=== PATIENT | female | born 1955 | race Caucasian/White ===

== ENCOUNTER → 2017-11-27 | Outpatient (CLI) | payer BC ==
[2014-02-04 14:10] VITALS: BP 154/69
[~2017-11-27] MED LIST: BLOOD PRESSURE MED; BUPIVACAINE MPF 0.5% 30 ML VIAL. ONE; DEXAMETHASONE SOD PHOS 4 MG/ML VIAL ONE; DM/P295L2 PO; GABA-586 PO; LIDOCAINE 1% PF 30 ML VIAL. ONE; MILN50TA PO; NAPR-683 PO
== END | disposition home or self-care (01) ==
LOC: SURG 12:11
PROVIDERS: ATTEND Anesthesiology Pain Medicine
DX: M47.816 Spondylosis without myelopathy or radiculopathy, lumbar region (principal)
CPT/HCPCS: 64493; 64494; J1100; J2001; J3490

== ENCOUNTER → 2018-01-29 | Outpatient (CLI) | payer BC ==
[2014-02-04 14:10] VITALS: BP 154/69
[~2018-01-29] MED LIST changes: +BUPIVACAINE MPF 0.25% 30 ML VIAL. ONE; -BUPIVACAINE MPF 0.5% 30 ML VIAL. ONE; +IOHEXOL 300 MG/ML 50 ML VIAL. ONE
== END | disposition home or self-care (01) ==
LOC: SURG 12:12
PROVIDERS: ATTEND Anesthesiology Pain Medicine
DX: M51.16 Intervertebral disc disorders with radiculopathy, lumbar region (principal); I10 Essential (primary) hypertension; M19.90 Unspecified osteoarthritis, unspecified site; M79.7 Fibromyalgia; Z90.49 Acquired absence of other specified parts of digestive tract; Z90.710 Acquired absence of both cervix and uterus; Z79.899 Other long term (current) drug therapy
CPT/HCPCS: 64483; 64484; J1100; J2001; J3490; Q9967; 77002

== ENCOUNTER 2018-04-13 07:40 | Emergency (ER) | payer BC ==
[~2018-04-13] VITALS: Ht 167.6 cm; Wt 97.5 kg
[~2018-04-13 07:40] MED LIST changes: -BUPIVACAINE MPF 0.25% 30 ML VIAL. ONE; -DEXAMETHASONE SOD PHOS 4 MG/ML VIAL ONE; -IOHEXOL 300 MG/ML 50 ML VIAL. ONE; -LIDOCAINE 1% PF 30 ML VIAL. ONE
--- NOTE | 2018-04-13 09:18 | PHYS DOC ---
Past History Past Medical History: Fibromyalgia, Hypertension Past Surgical History: Cholecystectomy, Hysterectomy, Tonsillectomy, Other Alcohol Use: Occasionally Drug Use: None Adult General Chief Complaint Chief Complaint: CONSTIPATION HPI HPI Patient is a 62 year old female who presents with complaining of constipation. Patient states she usually has bowel movements every other day but did not have any bowel movement for the last 4 days. Patient states she had back surgery and taking hydrocodone for the last 1 week and took MiraLAX yesterday without having a bowel movement. Patient complaining of pressure feeling in her abdomen and rectum without nausea and vomiting, fever and chills, urinary symptom. Review of Systems Review of Systems Constitutional: Denies fever or chills [] Eyes: Denies change in visual acuity, redness, or eye pain [] HENT: Denies nasal congestion or sore throat [] Respiratory: Denies cough or shortness of breath [] Cardiovascular: No additional information not addressed in HPI [] GI: Reports abdominal pain and constipation, denies nausea, vomiting, bloody stools or diarrhea [] : Denies dysuria or hematuria [] Musculoskeletal: Denies back pain or joint pain [] Integument: Denies rash or skin lesions [] Neurologic: Denies headache, focal weakness or sensory changes [] Endocrine: Denies polyuria or polydipsia [] All other systems were reviewed and found to be within normal limits, except as documented in this note. Allergies Allergies Allergies Coded Allergies Type Severity Reaction Last Updated Verified No Known Drug Allergies 02/04/14 No Physical Exam Physical Exam Constitutional: Well developed, well nourished, mild acute distress, non-toxic appearance. [] HENT: Normocephalic, atraumatic. Eyes: PERRLA, EOMI, conjunctiva normal, no discharge. [] Neck: Normal range of motion, no tenderness, supple, no stridor. [] Cardiovascular:Heart rate regular rhythm, no murmur [] Lungs & Thorax: Bilateral breath sounds clear to auscultation [] Abdomen: Bowel sounds normal, soft, no tenderness, no masses, no pulsatile masses. [Rectal exam with present of esthetics instructor showed fecal impaction that was manipulated and removed partially.] Skin: Warm, dry, no erythema, no rash. [] Back: No tenderness, no CVA tenderness. [] Extremities: No tenderness, no cyanosis, no clubbing, ROM intact, no edema. [] Neurologic: Alert and oriented X 3, normal motor function, normal sensory function, no focal deficits noted. [] Psychologic: Affect normal, judgement normal, mood normal. [] EKG EKG [] Radiology/Procedures Radiology/Procedures [] Course & Med Decision Making Course & Med Decision Making Evaluation of patient in ER showed 62-year-old male patient with complaining of constipation after taking hydrocodone for the last one week for back surgery. Patient had fecal impaction and was not able to have bowel movements after removing part of the stool. Patient had milk of molasses enema and was able to have a good bowel movement in ER. Prescription for milk of magnesia on [facility] was given for using as needed. Dragon Disclaimer Dragon Disclaimer This electronic medical record was generated, in whole or in part, using a voice recognition dictation system. Departure Departure: Impression: Primary Impression: Constipation due to opioid therapy Disposition: HOME, SELF-CARE (@1030) Condition: IMPROVED Referrals: MELISA MORENO MD (PCP) Patient Instructions: Constipation, Adult Additional Instructions: Drink plenty of liquids Follow-up with your primary care physician in 3-5 days Return to ER if not getting better Scripts Magnesium Citrate (MAGNESIUM CITRATE) 296 Ml Solution 148 ML PO ONCE PRN for constipation, #296 ML Prov: NORMA LING MD 04/13/18 Peg 3350/Na Sulf,Bicarb,Cl/Kcl (GOLYTELY SOLUTION) 4,000 Ml Soln.recon 250 ML PO Q1HR for constipation, #1 MISC Prov: NORMA LING MD 04/13/18 NORMA LING MD Apr 13, 2018 09:18
[2018-04-13 10:10] VITALS: BP 142/80
[2018-04-13] MEDS ORDERED: PEG4000S8 PO (10:28)
[2018-04-13] MEDS ORDERED: MAGN296S9 PO (10:28)
== END 2018-04-13 10:40 | disposition home or self-care (01) ==
LOC: ER 07:40
DX: K59.03 Drug induced constipation (principal); T40.2X5A Adverse effect of other opioids, initial encounter; M79.7 Fibromyalgia; I10 Essential (primary) hypertension; Z90.49 Acquired absence of other specified parts of digestive tract; Z90.710 Acquired absence of both cervix and uterus; Y92.89 Other specified places as the place of occurrence of the external cause
CPT/HCPCS: 99284

== ENCOUNTER 2020-01-22 08:16 | Emergency (ER) | payer MEDICARE, BC ==
[~2020-01-22] VITALS: Ht 165.1 cm; Wt 97.7 kg
[~2020-01-22 08:16] MED LIST changes: +MAGN296S68 PO; +PEG4000S8 PO
[2020-01-22] MEDS ORDERED: ONDANSETRON PF 4 MG/2 ML VIAL. ONE (08:37)
[2020-01-22] MEDS ORDERED: IV NORMAL SALINE 1,000ML 1,000 ML IV ONE (08:45)
[2020-01-22] MEDS ORDERED: ONDANSETRON PF 4 MG/2 ML VIAL. IVP ONE (08:45)
--- NOTE | 2020-01-22 08:55 | PHYS DOC ---
Past History Past Medical History: Fibromyalgia, High Cholesterol, Hypertension Past Surgical History: Cholecystectomy, Hysterectomy, Tonsillectomy, Other Alcohol Use: Occasionally Drug Use: None Adult General Chief Complaint Chief Complaint: NAUSEA/VOMITING/DIARRHEA HPI HPI Patient is a 64-year-old female complaining of nausea. Patient reports symptom onset was this morning without any prodromal symptoms or other noticeable symptoms that were acknowledged prior to waking up this morning. Patient reports generalized stomach upset with nausea and acute on chronic constipation. In addition, patient also cites development of substernal chest pressure that does not radiate, is not severe but is bothering her and not typical for her. She states she tried taking Pepto-Bismol and other uefn-yav-xmblmdv remedies without significant relief which concerned her prompting her to visit our ER for evaluation. Timing of symptoms has been constant since onset. Patient reports she has past medical history of hypertension, high blood pressure and fibromyalgia and has been taking all medications daily. 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 Review of Systems Review of Systems Fourteen body systems of review of systems have been reviewed. See HPI for pertinent positives and negative responses, other pina all other systems are negative, non-pertinent or non-contributory Current Medications Current Medications Current Medications Medications (Trade) Dose Ordered Sig/Juan Miguel Start Time Stop Time Status Last Admin Dose Admin Ondansetron HCl (Zofran) 4 mg 1X ONCE 01/22/20 08:45 01/22/20 08:46 DC Sodium Chloride 1,000 ml @ 1,000 mls/hr 1X ONCE 01/22/20 08:45 01/22/20 09:44 Allergies Allergies Allergies Coded Allergies Type Severity Reaction Last Updated Verified No Known Drug Allergies 02/04/14 No Physical Exam Physical Exam Constitutional: Well developed, well nourished, no acute distress, non-toxic appearance. HENT: Normocephalic, atraumatic, bilateral external ears normal, oropharynx dry with postnasal drip present, no oral exudates, nose normal. Eyes: PERRLA, EOMI, conjunctiva normal, no discharge. Neck: Normal range of motion, no tenderness, supple, no stridor. Cardiovascular: Heart rate tachycardic, sinus rhythm, no murmurs rubs or gallops Lungs & Thorax: Bilateral breath sounds clear to auscultation, no respiratory distress or accessory muscle usage Abdomen: Bowel sounds normal, soft, generalized abdominal tenderness with palpation without any focal areas of concern, no guarding or rebound, no masses, no pulsatile masses. Nonsurgical abdomen, no peritoneal signs Skin: Warm, dry, no erythema, no rash. Back: No tenderness, no CVA tenderness. Extremities: No tenderness, no cyanosis, no clubbing, ROM intact, no edema. Neurologic: Alert and oriented X 3, grossly normal motor & sensory function, no focal deficits noted. Psychologic: Affect normal, judgement normal, anxious mood Current Patient Data Vital Signs Vital Signs Date Time Temp Pulse Resp B/P (MAP) Pulse Ox O2 Delivery O2 Flow Rate FiO2 01/22/20 08:20 96.2 103 16 123/91 (102) 98 Room Air EKG EKG EKG ordered and interpreted by myself at 0914 hrs. as sinus rhythm at 89 bpm, unremarkable intervals, no axis deviation, no acute ischemic findings, no STEMI Radiology/Procedures Radiology/Procedures Chest AP only at 0934: Reason for examination: Covid symptoms. Short of breath. Comparison is made to previous study dated 02/12/2013. The heart size is normal. Mediastinum is unremarkable. Lung [place] show continued presence of linear densities at the left lung base consistent with atelectasis or scarring. There is also increased markings at the right lung base which may represent infiltrate or atelectasis. No pleural effusions are seen. No acute bony abnormalities are present. IMPRESSION: Linear densities suggesting atelectasis or scarring at the left lung base. Increased markings at the right lung base which may reflect infiltrates or atelectasis. Recommend clinical correlation and follow-up. Electronically signed by: Sophia Kelly MD (01/22/2020 9:48 AM) [id number] Heart Score HEART Score for Chest Pain: HEART Score for Chest Pain Response (Comments) Value History Slighlty/Non-Suspicious 0 ECG Normal 0 Age >45 - < 65 1 Risk Factors 1 or 2 Risk Factors 1 Troponin < Normal Limit 0 Total 2 Risk Factors: Risk Factors: DM, Current or recent (<one month) smoker, HTN, HLP, family history of CAD, obesity. Risk Scores: Risk Factors: DM, Current or recent (<one month) smoker, HTN, HLP, family history of CAD, obesity. Course & Med Decision Making Course & Med Decision Making Pertinent Labs and Imaging studies reviewed. (See chart for details) Discussed most likely diagnosis of colitis. Could not rule out left lower lobe pneumonia and/or COVID-19. Pending COVID-19 testing at this time Discussed potential plans of care at length, given that patient is ambulatory, well-appearing nontoxic and tolerating p.o. intake, joint decision to discharge home. Joint decision made to start on Cipro and Flagyl for colitis coverage in addition to pneumonia coverage Patient will continue supportive care practices at home and self quarantine Patient was advised and educated on importance of close outpatient follow-up when appropriate. I advised them to call primary care physician as soon as possible to discuss following up in outpatient setting after ER departure for repeat examination and evaluation. Strict return precautions were discussed at length with good understanding by patient who is able to restate plan and concerning signs or symptoms that should prompt immediate medical attention. All questions and concerns addressed prior to ER departure Dragon Disclaimer Dragon Disclaimer This electronic medical record was generated, in whole or in part, using a voice recognition dictation system. Departure Departure: Impression: Primary Impression: Colitis Additional Impression: Person under investigation for COVID-19 Disposition: 01 DC HOME SELF CARE/HOMELESS Condition: STABLE Referrals: MELISA MORENO MD (PCP) Patient Instructions: Colitis Additional Instructions: You were evaluated in the Emergency Department today for a cough. Your evaluatio n suggests a viral infection such as Coronavirus. It is important that you continue to self isolate and practice good hygiene at home. Please follow up with your primary care physician as discussed. Return to the Emergency Department if you experience worsening cough, fever, shortness of breath, recurrent vomiting, lethargy, or any other concerning symptoms. Thank you for choosing us for your care. Home Care Instructions for Patients with Mild Respiratory Infection Most people with respiratory infections like colds, the flu, and Coronavirus Disease (COVID-19) will have mild illness and can get better with appropriate home care and without the need to see a provider. People who are elderly, , or have a weak immune system, or other medical problem are at higher risk of more serious illness or complications. It is recommended that they carefully monitor their symptoms closely and seek medical care early if their symptoms get worse. Treatment There is no specific treatment for most viruses including those that that cause the common cold and those that cause COVID-19. Sometimes there is treatment for the viruses that cause influenza if given early. Antibiotics treat infections caused by bacteria, but they do not work against viruses.Most people recover on their own from these viruses, including COVID-19. Here are steps that you can take to help you get better: Rest Drink plenty of fluids Take yatw-bzm-iuxivbd cold and flu medications to reduce fever and pain. Follow the instructions on the package, unless your doctor gave you instructions. Note that these medicines do not ``cure the illness and therefore do not stop you from spreading germs. Children should not be given medication that contains aspirin (acetylsalicylic acid) because it can cause a rare but serious illness called Gallito syndrome. Medicines without aspirin include acetaminophen (Tylenol) and ibuprofen (Advi l, Motrin). Children younger than age 2 should not be given any rgsa-teh-igrwlfi cold medications without first speaking with a doctor.Seeking Medical Care You should seek medical care if you are not getting better within a week, or if your symptoms get worse. If you are elderly, , have a weak immune system, or other medical problems, call your doctor right away. It is best to call ahead of time to discuss your symptoms, if possible. This may allow you to receive the advice you need by phone. By avoiding a visit to a healthcare facility, you protect yourself from getting a new infection and protect others from catching an infection from you. If you do visit a healthcare facility, put on a mask to protect other patients and staff. It is recommended that you seek medical care for serious symptoms, such as: People with potentially life-threatening symptoms should call 911. If possible, put on a facemask before emergency medical services arrive. PROTECTING OTHERS Follow the steps below to help prevent the disease from spreading to people in your home and community.Stay home when you are sick Stay home - do not go to work, school, or public areas. Stay home for at least 24 hours after your symptoms have gone away without the use of fever-reducing medicines. If you must leave home while you are sick, try to avoid using public transportation, ride-shares, and taxis. Wear a mask if possible. Separate yourself from other people and animals in your home Stay in a specific room and away from other people in your home as much as possible. Use a separate bathroom, if available. Try to stay at least 6 feet from others. Do not handle pets or other animals while you are sick. Cover your coughs and sneezes Cover your mouth and nose with a tissue when you cough or sneeze. Throw used tissues in a lined trash can; immediately wash your hands. Avoid sharing personal household items Do not share dishes, drinking glasses, cups, eating utensils, towels, or bedding with other people or pets in your home. Wash them thoroughly with soap and water after use. Clean your hands often Wash your hands often with soap and water for at least 20 seconds. If soap and water are not available, clean your hands with an alcohol-based hand cotton ball machine tender that contains at least 60% alcohol, covering all surfaces of your hands and rubbing them together until they feel dry. Use soap and water if your hands are visibly dirty. Clean all ``high-touch surfaces every day High touch surfaces include counters, tabletops, doorknobs, bathroom fixtures, toilets, phones, keyboards, tablets, and bedside tables. Also, clean any surfaces that may have body fluids on them. Use a household cleaning spray or wipe, according to the product label instructions. COVID-19 (Novel Coronavirus) FAQs for Inquiring Patients What do you do if you are worried that you have been exposed to COVID-19 but are without any symptoms? If you develop symptoms that may indicate an infection, contact your physician. These include fever, cough, and shortness of breath. Testing is not available for asymptomatic individuals, regardless of travel history. To reduce the chance of getting sick use general infection prevention measures such as hand washing, covering your mouth and nose when you cough or sneeze and discarding any tissues carefully, and staying home when you are sick.Can exceptions be made for patients who are really worried and want to be tested? Presently testing is available through all local Department of Public Health and Centers for Disease Control and Prevention in addition to numerous Urgent Care facilities and Pharmacies. Only patients who meet the updated COVID-19 PUI definition may be tested. We do not control or set the PUI definition or evaluation criteria. We are unable to provide testing to patients who do not meet the strict criteria. Should patients cancel or postpone an upcoming trip? The decision about travel is personal and should be made in the context of a persons underlying health conditions, reason for travel and necessity of travel. Travel insurance generally does not cover cancellations due to concerns of infectious disease outbreaks. The Center for Disease Control has a section on travel notices. Situations are changing frequently and you should monitor the site for updates. Should situations change rapidly in a foreign country while they are traveling, you could be subject to quarantine or restrictions upon return to the [facility]. It is best to have a plan on how to return urgently if needed during a trip abroad. Because of how air circulates and is filtered on airplanes, most viruses do not spread easily on airplanes. CDC does not recommend use of facemasks during air travel.What other general precautions are advised? Patients should be instructed to: Avoid close contact with people who are sick. Avoid touching your eyes, nose and mouth. Stay home from work or school when they are sick. If you have a fever, you should remain home until 24 hours after fever resolves. Clean and disinfect frequently touched objects and surfaces using a regular household cleaning spray or wipe. Sneeze/cough into their elbow, not your hand. Practice frequent hand hygiene with soap and water (at least 20 seconds) or alcohol-based hand rub. Consider avoiding crowded places or mass gatherings, especially if you are immunocompromised or have chronic lung disease. There is no evidence to support transmission of COVID-19 from goods imported from [place]. Are there any special precautions that are recommended if I am ? There is not yet any information available about the susceptibility of women to COVID-19. As a general rule, women may be more susceptible to viral respiratory infections and at risk for more severe illness. The CDC guidance for COVID-19 and has answers to questions about transmission during delivery, as well as other situations. Should food, water, or medications be stockpiled? Should people telecommute? The CDC has excellent information on this. Please visit the CDCs guidance for getting your household ready for COVID-19. What should I do if I start feeling sick at work? And what should the workplace do for anyone exposed? Anyone who is sick with a fever and cough should stay home from work until at least 24 hours after resolution of fever, regardless of concerns for COVID-19. It is still influenza (flu) season and influenza remains far more common. Scripts Metronidazole (FLAGYL) 500 Mg Tablet 500 MG PO TID for COLITIS for 7 Days, #21 TAB Prov: INEZ OBRIEN DO 01/22/20 Ciprofloxacin Hcl (CIPROFLOXACIN HCL) 500 Mg Tablet 1 TAB PO BID for COLITIS for 5 Days, #10 TAB Prov: INEZ OBRIEN DO 01/22/20 Problem Qualifiers INEZ OBRIEN DO Jan 22, 2020 08:55
[2020-01-22 09:01] LABS: BASO # 0.1 x10^3/uL (0.0-0.2); BASO % 1 % (0-3); EOS # 0.2 x10^3/uL (0.0-0.7); EOS % 2 % (0-3); HEMATOCRIT 42.3 % (36.0-47.0); HEMOGLOBIN 13.6 g/dL (12.0-15.5); LYMPH # 2.5 x10^3/uL (1.0-4.8); LYMPH % 24 % (24-48); MEAN CORPUSCULAR HEMOGLOBIN 28 pg (25-35); MEAN CORPUSCULAR HGB CONC 32 g/dL (31-37); MEAN CORPUSCULAR VOLUME 88 fL (79-100); MONO # 0.8 x10^3/uL (0.0-1.1); MONO % 7 % (0-9); NEUT # 6.9 x10^3uL (1.8-7.7); NEUT % 66 % (31-73); PLATELET COUNT 303 x10^3/uL (140-400); RED BLOOD COUNT 4.81 x10^6/uL (3.50-5.40); RED CELL DISTRIBUTION WIDTH 14.8 % (11.5-14.5); WHITE BLOOD COUNT 10.5 x10^3/uL (4.0-11.0)
[2020-01-22 09:07] LABS: CALCIUM 9.6 mg/dL (8.5-10.1); CREATININE 1.3 mg/dL (0.6-1.0); POTASSIUM 3.6 mmol/L (3.5-5.1)
[2020-01-22 09:13] LABS: ALBUMIN 4.3 g/dL (3.4-5.0); TOTAL BILIRUBIN 1.7 mg/dL (0.2-1.0); TOTAL PROTEIN 8.7 g/dL (6.4-8.2)
--- NOTE | 2020-01-22 09:51 | RAD ---
Chest AP only at 0934: Reason for examination: Covid symptoms. Short of breath. Comparison is made to previous study dated 02/12/2013. The heart size is normal. Mediastinum is unremarkable. Lung [place] show continued presence of linear densities at the left lung base consistent with atelectasis or scarring. There is also increased markings at the right lung base which may represent infiltrate or atelectasis. No pleural effusions are seen. No acute bony abnormalities are present. IMPRESSION: Linear densities suggesting atelectasis or scarring at the left lung base. Increased markings at the right lung base which may reflect infiltrates or atelectasis. Recommend clinical correlation and follow-up. Electronically signed by: Sophia Kelly MD (01/22/2020 9:48 AM) [id number]
--- NOTE | 2020-01-22 09:58 | RAD ---
Abdominal and Pelvis CT, Without Contrast: History: Reason: llq pain / Spl. Instructions: / History: Comparison: None. Procedure: Axial images are obtained of the abdomen and pelvis, without IV or oral contrast. Oral Contrast: No Findings: Evaluation of solid organs is limited without contrast. There has been prior cholecystectomy. The appendix is normal. There is mild wall thickening of the left colon without surrounding inflammation. The colon is fairly collapsed limiting its evaluation. There is marked degenerative changes the spine with multilevel central and neuroforaminal stenosis. Liver: Normal. Spleen: Normal. Pancreas: Normal. Adrenal Glands: Normal. Kidneys: Perinephric stranding is likely chronic. There is no free air or free fluid. There is no lymphadenopathy. The urinary bladder appears normal. Impression: 1. Mild wall thickening of the left colon could be secondary to inflammatory or infectious colitis. There is no evidence of diverticulitis or ischemic colitis. 2. Marked degenerative changes of the lumbar spine with multilevel central and neuroforaminal stenosis. End impression PQRS Compliance Statement: One or more of the following individualized dose reduction techniques were utilized for this examination: 1. Automated exposure control 2. Adjustment of the mA and/or kV according to patient size 3. Use of iterative reconstruction technique Electronically signed by: Behzad Hernandez III, MD (01/22/2020 9:55 AM) [facility]
[2020-01-22] MEDS ORDERED: metroNIDAZOLE 500 MG TABLET PO ONE (10:15)
[2020-01-22] MEDS ORDERED: CIPROFLOXACIN HCL 500 MG TABLET PO ONE (10:15)
[2020-01-22] MEDS ORDERED: METR500T PO (10:20)
[2020-01-22] MEDS ORDERED: CIPR500T PO (10:20)
[2020-01-22 10:33] VITALS: BP 130/90
--- NOTE | 2020-01-23 09:03 | EKG ---
[address] [address] Test Date: 2020-01-22 Test Time: 09:05:09 Pat Name: KELSIE MERAZ Department: Room: Gender: F Private Inquiry Agent: JES : [id number] Requested By: INEZ OBRIEN Order Number: [id number] Reading MD: Measurements Intervals [place] Rate: 89 P: 54 GA: 172 QRS: 16 QRSD: 84 T: 9 QT: 368 QTc: 449 Interpretive Statements SINUS RHYTHM NORMAL ECG RI6.02 No previous ECG available for comparison
== END 2020-01-22 10:34 | disposition home or self-care (01) ==
LOC: ER 08:16
DX: K52.9 Noninfective gastroenteritis and colitis, unspecified (principal); Z20.828 Contact with and (suspected) exposure to other viral communicable diseases; I10 Essential (primary) hypertension; M79.7 Fibromyalgia; E78.00 Pure hypercholesterolemia, unspecified; Z90.49 Acquired absence of other specified parts of digestive tract; Z90.710 Acquired absence of both cervix and uterus
CPT/HCPCS: 36415; 71045; 74176; 80053; 83690; 83735; 84484; 85025; 93005; 96361; 96374; 99285; C9803; J2405; J7030; U0003

== ENCOUNTER 2020-11-21 20:41 | Emergency (ER) | payer BC, MEDICARE ==
[~2020-11-21] VITALS: Ht 165.1 cm; Wt 97.7 kg
[~2020-11-21 20:41] MED LIST changes: +CIPR500T2 PO; +METR500T PO
--- NOTE | 2020-11-21 20:46 | PHYS DOC ---
Past History Past Medical History: Fibromyalgia, High Cholesterol, Hypertension Past Surgical History: Cholecystectomy, Hysterectomy, Tonsillectomy, Other Alcohol Use: Occasionally Drug Use: None General Adult EDM: Chief Complaint: Palpitations HPI: HPI: ".. I just feeling exhausted... my heart had palpitations all day... the only thing different is the trip to the dentist this morning.. it was only partial replacement.. no sedation or any thing..." Patient is a 65 year old female who presents with above hx and complaints palpitations and irregular heart rate. Patient did have some dental work this morning but no sedation for the procedure. Patient denies any recent travel. No specific ill contacts. Did had COVID vaccination in 2020 and March- . Patient does have some diarrhea. Past history of colitis. Does have accelerated hypertension, fibromyalgia exacerbation, and generalized weakness today. Patient has had previous elevated cholesterol lesions. Have static surgeries of cholecystectomy hysterectomy and tonsillectomy. Patient currently follows with Dr. Moreno as a primary. Review of Systems: Review of Systems: Constitutional: Denies fever or chills Eyes: Denies change in visual acuity HENT: Denies nasal congestion or sore throat Respiratory: Denies cough or shortness of breath Cardiovascular: Complains of palpitations GI: Denies abdominal pain, nausea, vomiting, bloody stools or diarrhea : Denies dysuria Musculoskeletal: Denies back pain or joint pain Integument: Denies rash Neurologic: Denies headache, focal weakness or sensory changes Endocrine: Denies polyuria or polydipsia Lymphatic: Denies swollen glands Psychiatric: Denies depression or anxiety Family History: Family History: Noncontributory to presentation Current Medications: Current Meds: See nursing for home meds Allergies: Allergies: Allergies Coded Allergies Type Severity Reaction Last Updated Verified No Known Drug Allergies 02/04/14 No Physical Exam: PE: Constitutional: , no acute distress, non-toxic appearance. [] HENT: Normocephalic, atraumatic, bilateral external ears normal, oropharynx moist, no oral exudates, nose normal. [] Eyes: PERRLA, EOMI, conjunctiva normal, no discharge. [] Neck: Normal range of motion, no tenderness, supple, no stridor. [] Cardiovascular: Tachycardia heart rate regular rhythm, no murmur [] Lungs & Thorax: Bilateral breath sounds clear to auscultation [] Abdomen: Bowel sounds normal, soft, no tenderness, no masses, no pulsatile m asses. Obese. Old surgery scars. Skin: Warm, dry, no erythema, no rash. [] Back: No tenderness, no CVA tenderness. [] Extremities: No tenderness, no cyanosis, no clubbing, ROM intact, no edema. No cording appreciated Neurologic: Alert and oriented X 3, normal motor function, normal sensory function, no focal deficits noted. [] Psychologic: Affect anxious, judgement normal, mood normal. [] EKG: EKG: My interpretation EKG shows a sinus rhythm at 92 bpm. No findings of acute STEMI of contralateral changes. [] Radiology/Procedures: Radiology/Procedures: [address] [address] IMAGING REPORT Signed PATIENT: KELSIE MERAZ ACCOUNT: [id number] : 1955 LOCATION: ER AGE: 65 SEX: F EXAM STATUS: REG ER ORD. PHYSICIAN: LIANG SIMPSON MD REASON: palpitation, dyspnea PROCEDURE: CHEST PA & LATERAL INDICATION: Reason: palpitation, dyspnea / Spl. Instructions: / History: COMPARISON: January 2020 FINDINGS: 2 view of chest obtained. Disorganized pulmonary markings bilaterally. Hazy opacity at the lung bases. There is also suspected perihilar groundglass opacity in the left lung. Cardiac silhouette is similar to prior. Degenerative changes of the spine with osteophyte formation IMPRESSION: * Hazy opacity at the lung bases and left perihilar region which could be from atelectasis or infiltrate. * Disorganized pulmonary markings bilaterally. Would correlate for possible causes such as emphysema Electronically signed by: Narayan Guillen MD (11/21/2020 11:30 PM) DESKTOP- [id number] DICTATED AND SIGNED BY: NARAYAN GUILLEN MD DATE: 11/21/208 CC: LIANG SIMPSON MD; MELISA MORENO MD ~MTH0 0 [][address] [address] IMAGING REPORT Signed PATIENT: KELSIE MERAZ ACCOUNT: [id number] : 1955 LOCATION: ER AGE: 65 SEX: F EXAM STATUS: REG ER ORD. PHYSICIAN: LIANG SIMPSON MD REASON: palpitation, dyspnea PROCEDURE: CHEST PA & LATERAL INDICATION: Reason: palpitation, dyspnea / Spl. Instructions: / History: COMPARISON: January 2020 FINDINGS: 2 view of chest obtained. Disorganized pulmonary markings bilaterally. Hazy opacity at the lung bases. There is also suspected perihilar groundglass opacity in the left lung. Cardiac silhouette is similar to prior. Degenerative changes of the spine with osteophyte formation IMPRESSION: * Hazy opacity at the lung bases and left perihilar region which could be from atelectasis or infiltrate. * Disorganized pulmonary markings bilaterally. Would correlate for possible causes such as emphysema Electronically signed by: Narayan Guillen MD (11/21/2020 11:30 PM) DESKTOP- [id number] DICTATED AND SIGNED BY: NARAYAN GUILLEN MD DATE: 11/21/202327 CC: LIANG SIMPSON MD; MELISA MORENO MD ~MTH0 0 Heart Score: C/O Chest Pain: No HEART Score for Chest Pain: HEART Score for Chest Pain Response (Comments) Value History Moderately Suspicious 1 Age > 65 2 Risk Factors 1 or 2 Risk Factors 1 Troponin < Normal Limit 0 Total 4 Risk Factors: Risk Factors: DM, Current or recent (<one month) smoker, HTN, HLP, family history of CAD, obesity. Risk Scores: Score 0 - 3: 2.5% MACE over next 6 weeks - Discharge Home Score 4 - 6: 20.3% MACE over next 6 weeks - Admit for Clinical Observation Score 7 - 10: 72.7% MACE over next 6 weeks - Early Invasive Strategies Course & Med Decision Making: Course & Med Decision Making Pertinent Labs and Imaging studies reviewed. (See chart for details) Patient follow-up primary care. Patient review ED work-up. Patient self isolate. Patient wear a mask covering nose and mouth. Patient push fluids. Patient return if any concerns. Follow-up Covid results. Return if any concerns. Consider follow-up with cardiology. Take a daily aspirin. Use MDI two puffs four time s a day. Impression: 1. Viral Syndrome 2. Emphysema 3. Mild Leukocytosis 12.4 4. Dehydration - BUN 22/ Creat 1.2 5. Elevation D- dimer 1.29 [] Dragon Disclaimer: Dragon Disclaimer: This electronic medical record was generated, in whole or in part, using a voice recognition dictation system. Departure Departure: Referrals: MELISA MORENO MD (PCP) Jason Disclaimer This chart was dictated in whole or in part using Voice Recognition software in a busy, high-work load, and often noisy Emergency Department environment. It may contain unintended and wholly unrecognized errors or omissions. Dragon Disclaimer This chart was dictated in whole or in part using Voice Recognition software in a busy, high-work load, and often noisy Emergency Department environment. It may contain unintended and wholly unrecognized errors or omissions. LIANG SIMPSON MD Nov 21, 2020 20:46
[2020-11-21] MEDS: IV RINGERS SOLUTION,LACTATED 1,000 ML IV SCH (21:13)
[2020-11-21 21:21] LABS: BASO # 0.2 x10^3/uL (0.0-0.2); BASO % 1 % (0-3); EOS # 0.3 x10^3/uL (0.0-0.7); EOS % 2 % (0-3); HEMATOCRIT 39.9 % (36.0-47.0); HEMOGLOBIN 12.9 g/dL (12.0-15.5); LYMPH # 3.7 x10^3/uL (1.0-4.8); LYMPH % 30 % (24-48); MEAN CORPUSCULAR HEMOGLOBIN 29 pg (25-35); MEAN CORPUSCULAR HGB CONC 32 g/dL (31-37); MEAN CORPUSCULAR VOLUME 89 fL (79-100); MONO % 8 % (0-9); NEUT # 7.3 x10^3uL (1.8-7.7); NEUT % 59 % (31-73); PLATELET COUNT 254 x10^3/uL (140-400); RED BLOOD COUNT 4.46 x10^6/uL (3.50-5.40); RED CELL DISTRIBUTION WIDTH 15.3 % (11.5-14.5); WHITE BLOOD COUNT 12.4 x10^3/uL (4.0-11.0)
[2020-11-21 21:27] LABS: CALCIUM 9.4 mg/dL (8.5-10.1); CREATININE 1.2 mg/dL (0.6-1.0); GFR 44.8; POTASSIUM 3.6 mmol/L (3.5-5.1)
[2020-11-21 21:40] LABS: DIRECT BILIRUBIN 0.2 mg/dL (0.0-0.2); MAGNESIUM 1.9 mg/dL (1.8-2.4); TOTAL BILIRUBIN 0.7 mg/dL (0.2-1.0); TOTAL PROTEIN 7.6 g/dL (6.4-8.2)
[2020-11-21 22:24] LABS: BILIRUBIN,URINE NEG (NEG); CLARITY,URINE CLEAR; COLOR,URINE YELLOW; GLUCOSE,URINE NEG (NEG); NITRITE,URINE NEG (NEG); UROBILINOGEN,URINE 0.2 mg/dL (0.2 mg/dL)
[2020-11-21 22:25] LABS: BACTERIA,URINE MOD /HPF (0-FEW); RBC,URINE 0 /HPF (0-2); SQUAMOUS EPITHELIAL CELL,UR MOD /LPF
--- NOTE | 2020-11-21 23:33 | RAD ---
INDICATION: Reason: palpitation, dyspnea / Spl. Instructions: / History: COMPARISON: January 2020 FINDINGS: 2 view of chest obtained. Disorganized pulmonary markings bilaterally. Hazy opacity at the lung bases. There is also suspected perihilar groundglass opacity in the left lung. Cardiac silhouette is similar to prior. Degenerative changes of the spine with osteophyte formation IMPRESSION: * Hazy opacity at the lung bases and left perihilar region which could be from atelectasis or infilt rate. * Disorganized pulmonary markings bilaterally. Would correlate for possible causes such as emphysema Electronically signed by: Alli Nuno MD (11/21/2020 11:30 PM) DESKTOP-[id number]
[2020-11-21] MEDS ORDERED: CONTRAST GIVEN. MC PRN (23:45)
[2020-11-22] MEDS: IOHEXOL 350 MG/ML 100 ML VIAL. IV ONE (00:06)
--- NOTE | 2020-11-22 00:32 | RAD ---
CTA chest with contrast dated 11/22/2020. COMPARISON: 09/25/2009 CLINICAL INDICATION: Dyspnea and tachycardia. TECHNIQUE: Contiguous axial imaging the chest performed on the intravenous administration of 75 cc Omnipaque 350 . Study was performed as dedicated PE protocol with thin cut coronal MIPS 3-D reconstruction. One or more of the following individualized dose reduction techniques were utilized for this examinat ion: 1. Automated exposure control 2. Adjustment of the mA and/or kV according to patient size 3. Use of iterative reconstruction technique FINDINGS: Contrast bolus is adequate. No evidence of central, lobar or segmental pulmonary embolus. Subsegmenta l branches are not well evaluated based on technique. Heart size within normal limits. No pericardial effusion. Ectasia of the ascending thoracic aorta lul suring 3.9 cm transverse. No mediastinal, hilar or axillary lymphadenopathy. There are calcified prec arinal lymph nodes. Thyroid gland unremarkable. Central airways are patent. There is a noncalcified pulmonary nodule along the left major fissure on image 58 that measures 8 mm, unchanged. Linear bands of increased density in the lower lobes and ling [place], likely scar or atelectasis, also similar. Tiny nodule in the left upper lobe laterally on image 37 measures 3 mm, stable. Mild biapical scarring. No new parenchymal opacity or pleural effusion. Images of the upper abdomen show no significant abnormality. Bone windows show no acute findings. Mul tilevel spondylosis. IMPRESSION: 1. No evidence of central, lobar or segmental pulmonary embolus. 2. There are couple of noncalcified pulmonary nodules on the left that are stable compared to the 201 0 exam and likely benign. 3. Bibasilar scar or atelectasis. 4. Mild ectasia of the ascending thoracic aorta. Electronically signed by: Qasim Wyatt MD (11/22/2020 12:30 AM) [facility]
[2020-11-22] MEDS: ALBUTEROL SULFATE 8GM INHALER. INH ONE (01:30)
[2020-11-22 01:40] VITALS: BP 124/74
--- NOTE | 2020-11-22 04:16 | EKG ---
[address] [address] Test Date: 2020-11-21 Test Time: 20:48:08 Pat Name: KELSIE MERAZ Department: Room: Gender: F Communications Associate: : 1955 Requested By: LIANG SIMPSON Order Number: [id number] Reading MD: Dillon Tyson Measurements Intervals [place] Rate: 92 P: 54 NH: 154 QRS: 8 QRSD: 80 T: 22 QT: 360 QTc: 450 Interpretive Statements SINUS RHYTHM Electronically Signed On 11-22-2020 12:39:11 CDT by Dillon Tyson
== END 2020-11-22 01:50 | disposition home or self-care (01) ==
LOC: ER 20:41
DX: B34.9 Viral infection, unspecified (principal); J43.9 Emphysema, unspecified; D72.829 Elevated white blood cell count, unspecified; E86.0 Dehydration; I10 Essential (primary) hypertension; Z90.49 Acquired absence of other specified parts of digestive tract; Z90.710 Acquired absence of both cervix and uterus; Z20.822 Contact with and (suspected) exposure to COVID-19
CPT/HCPCS: 36415; 71046; 71275; 80048; 80076; 81001; 82550; 83690; 83735; 83880; 84443; 84484; 85025; 85379; 85610; 85730; 87086; 93005; 94640; 96360; 96361; 99285; C9803; J7120; Q9967; U0003; 94664